=== PATIENT | female | born 1995 | race Caucasian/White ===

== ENCOUNTER 2021-02-11 19:20 | Emergency (ER) | payer OTHER ==
[~2021-02-11] VITALS: Ht 152.4 cm; Wt 79.4 kg
[2021-02-11 19:23] VITALS: BP_SYST 142
--- NOTE | 2021-02-11 20:39 | NUR ---
ER in triage examining patient.
[2021-02-11] MEDS ORDERED: LevALBUTEROL HCL 1.25 MG/0.5 ML *CONC.* VIAL.NEB (XOPENEX CONC.) INH ONE (20:45)
--- NOTE | 2021-02-11 20:50 | NUR ---
Patient to bed 7 for breathing treatment
--- NOTE | 2021-02-11 20:50 | NUR ---
Pt c/o difficulty breathing with worsening of cough since yesterday. Respirations even, non-labored, airway patent, SPO2 98% RA.
--- NOTE | 2021-02-11 21:30 | NUR ---
Pt verbalizes improvement in breathing. No SOB, no respiratory distress noted. SPO2 99% RA.
[2021-02-11 21:40] VITALS: BP_SYST 128
--- NOTE | 2021-02-11 21:40 | NUR ---
Patient given written and verbal discharge instructions and verbalizes understanding. ER MD discussed with patient the results and treatment provided. Patient in stable condition. ID arm band removed. No Rx given. Patient educated on pain management and to follow up with PMD. Pain Scale 0/10. Opportunity for questions provided and answered. Medication side effect fact sheet provided.
== END 2021-02-11 21:40 | disposition home or self-care (01) ==
LOC: SED 19:20
DX: O26.893 Other specified pregnancy related conditions, third trimester (principal); J30.81 Allergic rhinitis due to animal (cat) (dog) hair and dander; Z3A.32 32 weeks gestation of pregnancy
CPT/HCPCS: 94640; 99283; J7612